=== PATIENT | female | born 1935 | race Caucasian/White ===

== ENCOUNTER → 2018-10-14 | Outpatient (CLI) | payer MEDICARE, OTHER ==
--- NOTE | 2018-10-14 16:51 | RAD ---
Examination: 2 views of the right knee HISTORY: History of chronic right knee pain COMPARISON: 02/21/2015. Findings: The alignment of the knee joint grossly appears unremarkable. There is moderate joint space loss identified in the medial compartment. There is mild joint space loss identified in the lateral, patellofemoral compartments. Soft tissue calcifications project posterior to the knee joint similar to prior exam. IMPRESSION: 1. Tricompartmental degenerative changes most medial compartment. Electronically signed by: Hari Avila MD (10/14/2018 4:48 PM) [id number]
== END | disposition home or self-care (01) ==
LOC: PMG 11:56
PROVIDERS: ATTEND Physician Assistant
DX: M17.11 Unilateral primary osteoarthritis, right knee (principal); M61.40 Other calcification of muscle, unspecified site
CPT/HCPCS: 73560

== ENCOUNTER → 2019-06-13 | Outpatient (CLI) | payer MEDICARE, OTHER ==
--- NOTE | 2019-06-13 15:39 | RAD ---
EXAM: CT Head without IV contrast INDICATION: Syncope, visual disturbance. TECHNIQUE: Multi-detector row CT images were obtained of the head without the use of IV contrast. All CT scans performed at this facility utilize dose optimization techniques as appropriate to the exam, including the following: Automated exposure control and adjustment of the mA and/or KV according to patient size (this includes techniques or standardized protocols for targeted exams where dose is indication/reason for exam). COMPARISON: None FINDINGS: BRAIN PARENCHYMA: No evidence of acute intraparenchymal hemorrhage or infarct. Punctate mineralization in the left globus pallidus, of likely no clinical significance. Scattered white matter low density compatible with chronic ischemic microvascular change and mild generalized parenchymal volume loss are noted. VENTRICLES & EXTRA-AXIAL SPACES: Ventricles are within normal limits. Basilar cisterns are patent. No pathologic extra-axial fluid collection or mass. ORBITS: Orbital contents are unremarkable. SINUSES: Visualized paranasal sinuses and mastoid air cells are clear. OSSEOUS & SOFT TISSUES: Calvarium and skull base are intact. IMPRESSION: No acute intracranial pathology. Electronically signed by: Washington Tineo MD (06/13/2019 3:37 PM) [facility]
== END | disposition home or self-care (01) ==
LOC: CT 12:25
PROVIDERS: ATTEND Registered Nurse
DX: I67.82 Cerebral ischemia (principal); H53.9 Unspecified visual disturbance
CPT/HCPCS: 70450

== ENCOUNTER → 2020-08-03 | Outpatient (CLI) | payer MEDICARE, OTHER ==
--- NOTE | 2020-08-03 16:04 | RAD ---
EXAM: Lumbar spine, 5 views. HISTORY: Pain. COMPARISON: None. FINDINGS: 5 views lumbar spine are obtained. There is levoscoliosis centered at L3. There is lumbar h yperlordosis. There is grade 1 anterolisthesis of L4 on L5, measuring approximately 8 mm. There is 3 mm retrolisthesis of L1 on L2, L2 on L3 and L3 on L4. There is multilevel endplate remodeling and fac et arthropathy. No acute fracture is seen. IMPRESSION: 1. Multilevel degenerative change, described above. 2. Lumbar hyperlordosis and scoliosis. There is superimposed grade 1 anterolisthesis of L4 and L5 and retrolisthesis at the upper and mid lumbar levels. Electronically signed by: Izzy Nichols MD (08/03/2020 4:02 PM) [facility]
== END ==
LOC: RAD 13:00
PROVIDERS: ATTEND Physician Assistant
DX: M47.816 Spondylosis without myelopathy or radiculopathy, lumbar region (principal); M43.16 Spondylolisthesis, lumbar region
CPT/HCPCS: 72110

== ENCOUNTER → 2021-01-14 | Outpatient (CLI) | payer MEDICARE, OTHER ==
[~2021-01-14] MED LIST: EVOL140P3 SQ; EZET10TA20 PO; LEVO88TA2 PO; MULT-445 PO; OLME5TAB4 PO; OMEG1CAP50 PO; POTA-121 PO; RIVA20TA2 PO; ZOLP5TAB PO; maxide
== END ==
LOC: LAB 11:11
PROVIDERS: ATTEND Ophthalmology
DX: Z01.812 Encounter for preprocedural laboratory examination (principal); Z20.822 Contact with and (suspected) exposure to COVID-19; H26.9 Unspecified cataract
CPT/HCPCS: U0003

== ENCOUNTER → 2021-01-17 | Day surgery (SDC) | payer MEDICARE, OTHER ==
[~2021-01-17] MED LIST changes: +ACETAMINOPHEN 500 MG TABLET PO PRN; +BALANCED SALT IRRIG SOLN NO.2 500 ML IO ONE; +BENZONATATE 100 MG CAPSULE. PO PRN; +BRIMONIDINE 0.2% OPHTH SOLUTION 5ML BOTTLE. OD ONE; +CEFUROXIME OPHTH 4 MG/0.4 ML SYRINGE. OD ONE; +CHONDROIT-SOD-HYALURONATE KIT. OD ONE; +IPRATRPIUM/ALBUTEROL 0.5/2.5MG 3 ML NEBU. NEB PRN; +IV RINGERS SOLUTION,LACTATED 1,000 ML IV SCH; +LIDO/EPI IN BSS OPHTH 2.7 ML SYRINGE. OD ONE; +MIDAZOLAM HCL PF 2 MG/2 ML VIAL. IV ONE; +MIDAZOLAM HCL PF 2 MG/2 ML VIAL. ONE; +ONDANSETRON PF 4 MG/2 ML VIAL. IV PRN; +PHENYLEPHRINE 10% OPHTH SOLUTION 5ML BOTTLE. OD PRN; +POVIDONE-IODINE 5% OPHTH SOLUTION 30ML BOTTLE. OD ONE; +POVIDONE-IODINE 5% OPHTH SOLUTION 30ML BOTTLE. OD PRN; +PROPARACAINE 0.5% OPHTH SOLUTION 15ML BOTTLE. OD ONE; +PROPARACAINE 0.5% OPHTH SOLUTION 15ML BOTTLE. OD PRN; +prednisoLONE ACETATE 1% OPHTH SUSPENSION 5ML BOTTLE. OD ONE
[2021-01-17] MEDS: TOBRAMYCIN 0.3% OPHTH SOLUTION 5ML BOTTLE. OD SCH ×2 (10:21→10:24)
[2021-01-17] MEDS: PHENYLEPHRINE 2.5% OPHTH SOLUTION 2ML BOTTLE. OD SCH ×3 (10:21→10:28)
[2021-01-17] MEDS: KETOROLAC TROMETHAMINE 0.5% OPHTH SOLUTION BOTTLE. OD SCH ×2 (10:21→10:24)
[2021-01-17] MEDS: TROPICAMIDE 1% OPHTH SOLUTION 15ML BOTTLE. OD SCH ×3 (10:21→10:28)
--- NOTE | 2021-01-17 11:36 | PDOC4 ---
SURGEON: Tessa Juárez MD Date of Procedure: 01/17/21 PREOP Diagnosis Visually significant cataract: Right Eye OD Pre-existing astigmatism: Right Eye OD POSTOP Diagnosis Same PROCEDURE: Phaco w/ posterior chamber IOL: Right Eye OD ANESTHESIA Deep forniceal periocular 2% Lidocaine jelly Taylor/retro bulbar block with 2% Lidocaine with 0.5% Marcaine DESCRIPTION OF PROCEDURE The risks, benefits, and alternatives were discussed with the patient who elected to proceed. Informed consent was obtained in writing and placed in the chart After anesthetizing the eye topically, the patient was taken to the operating room, and the operative eye was prepped and draped in the usual sterile fashion for ocular surgery. A wire lid speculum was placed. A 1-mm clear corneal paracentesis incision was created with the side-port blade at a position three o'clock hours clockwise from the temporal cornea. Then, 1% non-preserved Lidocaine with epinephrine was injected into the anterior chamber followed by viscoelastic. Cotton-tipped applicators were used to stabilize the globe, and a 2.4 mm keratome was used to create a self-sealing incision in clear cornea at the temporal limbus. The Utrata forceps were used to create a continuous curvilinear capsulorrhexis. Balanced saline solution was injected v ia cannula beneath the capsulorrhexis edge to hydrodissect the lens nucleus and cortex from the lens capsule. The phacoemulsification handpiece and a chopping instrument were then used to remove the lens nucleus. The remaining epinuclear material and cortex were removed with the irrigation/aspiration handpiece. Viscoelastic was used to re-inflate the lens capsule, and the intraocular lens was injected directly into the capsular bag. The corneal wound edges were hydrated with balanced salt solution on a cannula and the irrigation/aspiration handpiece was used to extract the remaining viscoelastic. Cefuroxime 0.1mg/ml / Vigamox 0.5% was injected into the anterior chamber intracamerally. The wounds were inspected and found to be watertight at an appropriate intraocular pressure. Topical antibiotic drops were placed on the corneal surface. LRI: No If Yes, Number [] Vale [] Length [] degrees Depth [] microns Incision Vale: 180 Toric Lens Vale [176] Patch/shield with Maxitrol/Tobradex/Erythromycin ointment: 2 Yes No Co-managed patients/postop examination stable for co-management with referring doctor. EBL EBL: None SPECIMANS COLLECTED Specimens Collected: None TESSA JUÁREZ MD Jan 17, 2021 11:36
[2021-01-17 11:46] VITALS: BP 131/59
== END | disposition home or self-care (01) ==
LOC: SURG 10:05
PROVIDERS: ATTEND Ophthalmology
DX: H25.11 Age-related nuclear cataract, right eye (principal); E78.00 Pure hypercholesterolemia, unspecified; E07.9 Disorder of thyroid, unspecified; Z98.890 Other specified postprocedural states; Z79.899 Other long term (current) drug therapy; Z86.73 Personal history of transient ischemic attack (TIA), and cerebral infarction without residual deficits; Z85.828 Personal history of other malignant neoplasm of skin
CPT/HCPCS: 66984; J2250; V2632

== ENCOUNTER → 2021-03-26 | Outpatient (CLI) | payer MEDICARE, OTHER ==
[2021-01-17 11:46] VITALS: BP 131/59
[~2021-03-26] MED LIST changes: -ACETAMINOPHEN 500 MG TABLET PO PRN; -BALANCED SALT IRRIG SOLN NO.2 500 ML IO ONE; -BENZONATATE 100 MG CAPSULE. PO PRN; -BRIMONIDINE 0.2% OPHTH SOLUTION 5ML BOTTLE. OD ONE; -CEFUROXIME OPHTH 4 MG/0.4 ML SYRINGE. OD ONE; -CHONDROIT-SOD-HYALURONATE KIT. OD ONE; -IPRATRPIUM/ALBUTEROL 0.5/2.5MG 3 ML NEBU. NEB PRN; -IV RINGERS SOLUTION,LACTATED 1,000 ML IV SCH; -LIDO/EPI IN BSS OPHTH 2.7 ML SYRINGE. OD ONE; -MIDAZOLAM HCL PF 2 MG/2 ML VIAL. IV ONE; -MIDAZOLAM HCL PF 2 MG/2 ML VIAL. ONE; -ONDANSETRON PF 4 MG/2 ML VIAL. IV PRN; -PHENYLEPHRINE 10% OPHTH SOLUTION 5ML BOTTLE. OD PRN; -POVIDONE-IODINE 5% OPHTH SOLUTION 30ML BOTTLE. OD ONE; -POVIDONE-IODINE 5% OPHTH SOLUTION 30ML BOTTLE. OD PRN; -PROPARACAINE 0.5% OPHTH SOLUTION 15ML BOTTLE. OD ONE; -PROPARACAINE 0.5% OPHTH SOLUTION 15ML BOTTLE. OD PRN; -prednisoLONE ACETATE 1% OPHTH SUSPENSION 5ML BOTTLE. OD ONE
--- NOTE | 2021-03-27 12:06 | RAD ---
EXAM: XR RIBS MIN 3 VIEWS LT W/PA CHEST 03/26/2021 3:09 PM CLINICAL INDICATION: Left lower rib pain, unknown injury COMPARISON: Chest radiograph 02/28/2019 TECHNIQUE: PA view the chest. AP and oblique views of the left ribs FINDINGS: The heart is normal in size. There is a loop recorder device. There is a new 3.3 x 2.5 cm mass in the left upper lobe. Calcified granuloma in the right apex. No pleural effusion or pneumothor ax. No displaced fracture. IMPRESSION: 1. 3.5 cm mass in the left upper lobe. Recommend CT of the chest to further evaluate. 2. No displaced fracture. A voice message regarding left upper lobe mass was left for Misael Aburto at his office at 12:00 PM on 03/27/2021. Electronically signed by: Missy Wallis MD (03/27/2021 12:03 PM) [id number]
== END ==
LOC: RAD 14:57
PROVIDERS: ATTEND Physician Assistant
DX: R91.8 Other nonspecific abnormal finding of lung field (principal); J84.10 Pulmonary fibrosis, unspecified
CPT/HCPCS: 71101

== ENCOUNTER → 2021-04-10 | Outpatient (CLI) | payer MEDICARE, OTHER ==
[2021-01-17 11:46] VITALS: BP 131/59
[~2021-04-10] MED LIST changes: +IOHEXOL 300 MG/ML 75 ML VIAL. IV ONE
--- NOTE | 2021-04-10 10:23 | RAD ---
EXAM: Carotid Doppler sonogram. HISTORY: Atherosclerosis. Transient ischemic attack. TECHNIQUE: Jim scale and color Doppler sonographic evaluation of the neck with spectral waveform radha lysis was performed and static images are submitted for review. FINDINGS: There is mild atherosclerotic plaque involving the left common carotid artery and origin of the right internal carotid artery. The peak systolic velocity within the right common carotid artery is 108 cm/sec. The peak systolic ve locity within the right internal carotid artery is 82 cm/sec and the end diastolic velocity within th e right internal carotid artery is 23 cm/sec. The right ICA/CCA ratio is 1.2. The peak systolic velocity within the left common carotid artery is 122 cm/sec. The peak systolic neal ocity within the left internal carotid artery is 97 cm/sec and the end diastolic velocity within the left internal carotid artery is 29 cm/sec. The left ICA/CCA ratio is 1.0. There is normal antegrade flow within both vertebral arteries. IMPRESSION: Doppler findings consistent with less than 50 percent stenosis involving the internal car otid arteries. PQRS Compliance Statement - Stenosis calculations for CT, MR and conventional angiography are based u lissette measurement of the distal ICA diameter in accordance with the NASCET methodology. Stenosis calcu lations for carotid ultrasound studies are derived from validated velocity criteria which are known t o correlate with the NASCET methodology. Electronically signed by: Izzy Nichols MD (04/10/2021 10:20 AM) [id number]
--- NOTE | 2021-04-10 11:07 | RAD ---
EXAM: Thyroid sonogram. HISTORY: Hypothyroidism. TECHNIQUE: Sonographic imaging of the thyroid was performed. COMPARISON: None. FINDINGS: The right thyroid lobe measures 5.2 x 2.1 x 2.8 cm. The left thyroid lobe measures 4.0 x 1. 2 x 1.0 cm. The isthmus measures 2 mm. There is a solid circumscribed hypoechoic nodule within the mid right thyroid lobe measuring 2.3 x 1. 9 x 1.8 cm. This is wider than tall on longitudinal images. This lesion contains a few tiny echogenic foci. There is a 5 x 5 x 2 mm circumscribed hypoechoic nodule within the right aspect of the thyroid isthmu s. There is a 6 x 4 x 4 mm circumscribed hypoechoic nodule within the mid right thyroid lobe. IMPRESSION: 1. 2.3 cm dominant left thyroid nodule. TI-RADS Category 5. Sonographic guided fine-needle aspiration is recommended. 2. 5 mm and 6 mm nodules within the right aspect of the thyroid isthmus and mid right thyroid lobe. T I-RADS Category 4. Sonographic follow-up is typically recommended for category 4 nodules greater than 10 mm. Electronically signed by: Izzy Nichols MD (04/10/2021 11:04 AM) [id number]
--- NOTE | 2021-04-10 14:42 | RAD ---
Study: CT of the Chest with IV contrast 04/10/2021 Comparison: None Clinical Indication: Left upper lobe mass Technique: Contiguous axial images are obtained from the thoracic inlet to the apex of the diaphragm. Sagittal and coronal reformations are evaluated. Dose Reduction: One or more of the following individualized dose reduction techniques were utilized f or this examination: 1. Automated exposure control, 2. Adjustment of the mA and/or kV according to p atient size, 3. Use of iterative reconstruction technique FINDINGS: Lungs: There is a left upper lobe, suprahilar masslike consolidation with spiculation about the left main pulmonary artery. It is now shaped making it difficult to measure but the overall area is approx imately 5.3 x 5.3 cm. There is cut off of the upper lobe bronchus. There is volume loss of the left u pper lobe. Calcified granuloma at the left lung apex. 6 mm solid nodule in the superior right upper l obe. 3 mm solid nodule in the lateral right upper lobe (image 27/117). 4 mm solid nodule in the right lower lobe (image 41/117). Groundglass nodule measuring 1.9 x 1.4 cm in the right lower lobe (image 60/117). Solid nodule extending to the pleura measuring 4 mm in the left lower lobe. Central Airways: Widely patent. Lymph Nodes: No suspicious hilar, mediastinal or axillary adenopathy. Pulmonary Vasculature: Grossly unremarkable Heart: Normal in size and grossly unremarkable. No coronary artery calcifications. Systemic Vasculature: Moderate atherosclerosis. Esophageal: Normal in course and caliber. Upper Abdomen: Liver cyst. Punctate calcifications in the liver and spleen based on prior granulomato us disease. There is a 1.7 x 1.5 cm cortically based hyperdense nodule in the upper pole the right ki dney. Small hiatal hernia. Bones: Diffuse ill-defined sclerotic lesions throughout the axial skeleton. Soft Tissues: 2.2 x 1.5 cm right thyroid nodule. Loop recorder device in the soft tissues of the left chest wall. IMPRESSION: 1. 5.3 cm masslike consolidation in the suprahilar left upper lobe concerning for neoplasm with posto bstructive pneumonia. 2. Multiple suspicious solid and groundglass nodules bilaterally. The largest of which is a groundgla ss nodule measuring 1.9 cm in the right lower lobe. Either tissue sampling or PET/CT is recommended. 3. Diffuse sclerotic lesions in the visualized axial skeleton concerning for metastatic disease. 4. Hyperdense 1.7 cm cortically based nodule in the upper pole of right kidney. This is indeterminate on this single phase CT. Renal mass protocol CT is recommended for further evaluation. 5. 2.2 cm right thyroid nodule. Electronically signed by: Graham Skinner (04/10/2021 2:40 PM) [id number]
== END ==
LOC: US 08:56
PROVIDERS: ATTEND Physician Assistant
DX: R91.8 Other nonspecific abnormal finding of lung field (principal); J84.10 Pulmonary fibrosis, unspecified; E04.2 Nontoxic multinodular goiter; I10 Essential (primary) hypertension; E03.9 Hypothyroidism, unspecified; E78.5 Hyperlipidemia, unspecified; K76.89 Other specified diseases of liver; K44.9 Diaphragmatic hernia without obstruction or gangrene; Z86.73 Personal history of transient ischemic attack (TIA), and cerebral infarction without residual deficits
CPT/HCPCS: 71260; 76536; 93880; Q9967